=== PATIENT | female | born 1995 | race Two or more races ===

== ENCOUNTER 2017-12-12 12:46 | Emergency (ER) | payer OTHER ==
[2017-12-12 13:07] LABS: BILIRUBIN,URINE NEGATIVE (NEGATIVE); GLUCOSE, URINE (UA) NEGATIVE (NEGATIVE); KETONES,URINE (UA) NEGATIVE (NEGATIVE); LEUKOCYTE ESTERASE, URINE TRACE (NEGATIVE); NITRITE,URINE NEGATIVE (NEGATIVE); OCCULT BLOOD,URINE LARGE (NEGATIVE); PROTEIN,URINE 100 mg/dL (NEGATIVE); UROBILINOGEN,URINE 0.2 (NORMAL) E.U./dL (NORMAL)
[2017-12-12 13:12] LABS: CLARITY,URINE HAZY (CLEAR); HCG UR QUAL NEGATIVE
[2017-12-12 13:20] LABS: BACTERIA,URINE Moderate /HPF (None Seen); SQUAMOUS EPITHELIAL CELL,UR FEW Squamous (<= Few); YEAST,URINE PRESENT
[2017-12-12] MEDS ORDERED: SODIUM CHLORIDE 0.9% 1,000 ML IV ONE (13:41)
[2017-12-12] MEDS ORDERED: MORPHINE 2 MG/ML CARPUJECT IVP STA ×2 (13:41→14:07)
[2017-12-12] MEDS ORDERED: ONDANSETRON 4 MG/2 ML VIAL IVP STA (13:41)
--- NOTE | 2017-12-12 13:46 | ED Physician Documentation ---
History of Present Illness - Stated complaint Stated Complaint: FEMALE - Chief complaint Chief Complaint: General - Additonal information Additional information: hx from pt abd pain X 1 day feels faint no fever nausea some urinary sx dysuria and hematuria LMP 3 days ago denies preg states she [place] that showed a chronically failed kidney Review of Systems Constitutional: reports: Fatigue. denies: Fever, Chills Throat: denies: Sore throat Cardiac: denies: Chest pain / pressure Respiratory: denies: Dyspnea GI: reports: Abdominal Pain, Nausea : reports: Dysuria, Hematuria. denies: Now EGA Musculoskeletal: denies: Back pain Endocrine: denies: Easy bruising / bleeding Immunocompromised: denies: Immunocompromised PD PAST MEDICAL HISTORY - Past Medical History Past Medical History: Yes : Other Other Past Medical History: L side kindye " not working " - Past Surgical History Past Surgical History: No - Present Medications Home Medications: Ambulatory Orders Medication Instructions Recorded Confirmed traMADol [Ultram] 50 mg PO PRN PRN 12/12/17 12/12/17 - Allergies Allergies/Adverse Reactions: Allergies Allergy/AdvReac Type Severity Reaction Status Date / Time No Known Drug Allergies Allergy Verified 12/12/17 12:50 - Social History Does the pt smoke?: No Smoking Status: Never smoker Does the pt drink ETOH?: Yes ETOH Use: Wine Does the pt have substance abuse?: No - Immunizations Immunizations are current?: Yes - POLST Patient has POLST: No PD ED PE NORMAL - Vitals Vital signs reviewed: Yes - General General: Other (very pale) - Neck Neck: Supple, no meningeal sign - Cardiac Cardiac: RRR - Respiratory Respiratory: No respiratory distress, Clear bilaterally - Abdomen Abdomen: Other (severe TTP LLQ with guarding, slightly milder diffuse TTP throughout abd) - Derm Derm: Other (pale) - Neuro Neuro: Other (very weak) Results - Vitals Vitals: Vital Signs - 24 hr 12/12/17 12/12/17 12/12/17 12:48 14:51 15:51 Temperature 36.6 C 37.1 C Heart Rate 91 87 86 Respiratory 16 18 18 Rate Blood Pressure 123/73 104/57 L 94/61 O2 Saturation 99 100 99 Oxygen O2 Source Room air - Labs Labs: Laboratory Tests 12/12/17 12/12/17 12/12/17 12:55 14:03 14:03 WBC 18.4 H RBC 4.36 Hgb 11.2 L Hct 34.2 L MCV 78.4 L MCH 25.7 L MCHC 32.7 RDW 14.4 Plt Count 316 MPV 7.3 L Neut # 15.2 H Lymph # 2.1 [place] # 0.9 Eos # 0.1 Baso # 0.0 Absolute Nucleated RBC 0.00 Nucleated RBC % 0.0 Sodium 139 Potassium 3.4 L Chloride 104 Carbon Dioxide 24 Anion Gap 11.0 BUN 13 Creatinine 0.7 Estimated GFR (MDRD) 104 Glucose 125 H Calcium 8.5 Total Bilirubin 0.5 AST 16 ALT 10 Alkaline Phosphatase 68 Total Protein 6.8 Albumin 4.1 Globulin 2.7 Albumin/Globulin Ratio 1.5 Lipase < 10 L Urine Color YELLOW Urine Clarity HAZY Urine pH 6.0 Ur Specific [place] >=1.030 H Urine Protein 100 H Urine Glucose (UA) NEGATIVE Urine Ketones NEGATIVE Urine Occult Blood LARGE H Urine Nitrite NEGATIVE Urine Bilirubin NEGATIVE Urine Urobilinogen 0.2 (NORMAL) Ur Leukocyte Esterase TRACE H Urine RBC 11-25 H Urine WBC 11-25 H Ur Squamous Epith Cells FEW Squamous Urine Bacteria Moderate H Urine Yeast PRESENT Ur Microscopic Review INDICATED Urine Culture Comments INDICATED Urine HCG, Qual NEGATIVE - Rads (name of study) CT AP Radiology: See rad report (L kidney essentially enlarged hydronephrotic sac containing multiple stones, 2X2.5mm stone within dilated l proximal ureter, not obstructing with pt supine in CT kelsie per rad could obstrict in diff position, no other ureteral stone but limited CT 2/2 scant body fat, extensive shotty adenopathy consider mesenteric adenitis, IUD hypeetrophied R kidney) PD MEDICAL DECISION MAKING - ED course ED course: pyelo with a 2X2.5 mm prox ureteral stone with infection her pain today was lower than prior renal colic but as severe - has hematuria and pyuria and stone on CT and no other sig abn on CT per rad read and pts urologist Dr Heredia this stone is intermittently obstructing she looks better now after toradol and IVF and rocephin but was very ill appearing upon arrival and has elev WBC and certainly potentially to rapidly decompensate again d/w urology and hospitalist at [facility] who agree to admit pt Departure - Departure Disposition: 02 Transfer Acute Care Hosp Clinical Impression: Pyelonephritis, Ureteral stone Condition: Fair
[2017-12-12 14:22] LABS: BASOPHILS % (AUTO) 0.2 %; EOSINOPHILS # (AUTO) 0.1 10^3/uL (0.0-0.7); EOSINOPHILS % (AUTO) 0.7 %; HGB - HEMOGLOBIN 11.2 g/dL (12.0-16.0); LYMPHOCYTES # (AUTO) 2.1 10^3/uL (1.5-3.5); LYMPHOCYTES % (AUTO) 11.2 %; MEAN CORPUSCULAR HEMOGLOBIN 25.7 pg (27.0-31.0); MEAN CORPUSCULAR HGB CONC 32.7 g/dL (32.0-36.0); MEAN CORPUSCULAR VOLUME 78.4 fL (81.0-99.0); MEAN PLATELET VOLUME 7.3 fL (7.9-10.8); MONOCYTES # (AUTO) 0.9 10^3/uL (0.0-1.0); NEUTROPHILS # (AUTO) 15.2 10^3/uL (1.5-6.6); NEUTROPHILS % (AUTO) 82.9 %; PLT - PLATELET COUNT 316 10^3/uL (130-450); RED BLOOD COUNT 4.36 10^6/uL (4.20-5.40); RED CELL DISTRIBUTION WIDTH 14.4 % (12.0-15.0); WHITE BLOOD COUNT 18.4 x10^3/uL (4.8-10.8)
[2017-12-12 14:34] LABS: ALBUMIN 4.1 g/dL (3.2-5.5); ALBUMIN/GLOBULIN RATIO 1.5 (1.0-2.2); ALKALINE PHOSPHATASE 68 IU/L (42-121); ALT ALANINE AMINOTRANSFERASE 10 IU/L (10-60); AST ASPARTATE AMINOTRANSFERASE 16 IU/L (10-42); BILIRUBIN,TOTAL 0.5 mg/dL (0.2-1.0); BUN - BLOOD UREA NITROGEN 13 mg/dL (6-20); CALCIUM 8.5 mg/dL (8.5-10.3); CARBON DIOXIDE - CO2 24 mmol/L (21-32); CHLORIDE 104 mmol/L (101-111); CREATININE 0.7 mg/dL (0.4-1.0); GFR - MDRD 104 (>89); GLUCOSE 125 mg/dL (70-100); SODIUM 139 mmol/L (135-145); TOTAL PROTEIN 6.8 g/dL (6.7-8.2)
[2017-12-12 14:40] LABS: LIPASE < 10 U/L (22-51)
[2017-12-12] MEDS ORDERED: KETOROLAC 30 MG/ML VIAL IVP STA (14:56)
--- NOTE | 2017-12-12 15:03 | CT Preliminary Report ---
Exam: CT ABDOMEN/PELVIS W/O IMPRESSION: 1. Left kidney is essentially a enlarged hydronephrotic sac with multiple small stones. 2. 2 x 2.5 mm stone within the dilated patulous proximal left ureter not causing mechanical obstructi on of such at this time with the patient in a supine position. Please note that this particular stone may vary in location within the left ureter such that it does cause obstruction when this lady is in an upright position. 3. No confident visualization of an additional left ureteral stone although visualization of the left ureter very limited due to paucity of body fat. 4. Extensive shoddy mesenteric and retroperitoneal adenopathy. Mesenteric adenitis included in the di fferential. 5. IUD. 6. Compensatory hypertrophy right kidney. [facility] SITE ID: [id number]
--- NOTE | 2017-12-12 15:11 | CT Report ---
EXAM: CT ABDOMEN AND PELVIS EXAM DATE: 12/12/2017 02:24 PM. CLINICAL HISTORY: Left lower quadrant pain. Hematuria. COMPARISONS: None. TECHNIQUE: Routine helical CT imaging was performed through the abdomen and pelvis. IV contrast: None . Enteric contrast: No. Reconstructions: Coronal and sagittal. In accordance with CT protocol optimization, one or more of the following dose reduction techniques w ere utilized for this exam: automated exposure control, adjustment of mA and/or KV based on patient s ize, or use of iterative reconstructive technique. FINDINGS: Lung Bases: Unremarkable. Liver: Normal. No masses. Gallbladder/Bile Ducts: Unremarkable. Spleen: Normal. Pancreas: Normal. Adrenal Glands: Normal. Kidneys: The right kidney measures 14.4 cm in length. The right kidney and right ureter are normal. The left kidney measures 12.5 cm in length. There is marked uniform thinning of the left renal cortex , measuring 3 mm. Multiple 4 mm and smaller stones within the markedly distended pelvicalyceal system. 2 x 2.5 mm stone within the dilated proximal left ureter, level with the mid body of L4. This stone d oes not occupy the entirety of the ureteral lumen. No additional calcifications in the area of the le ft ureter. Peritoneal Cavity/Bowel: Extensive mesenteric and retroperitoneal shotty adenopathy. Large and small bowel normal caliber. No free air nor free fluid. The appendix is well visualized and normal. Pelvic Organs: IUD in place. The bladder and visualized pelvic organs are within normal limits. Vasculature: No aneurysms or other significant abnormality. Bones: No significant abnormality. Other: None. IMPRESSION: 1. Left kidney, essentially an enlarged hydronephrotic sac with multiple small stones. 2. 2 x 2.5 mm stone within the dilated patulous proximal left ureter not causing mechanical obstructi on of such at this time with the patient in a supine position. Please note that this particular stone may vary in location within the left ureter such that it does cause obstruction when this lady is in an upright position. 3. No confident visualization of an additional left ureteral stone, although visualization of the lef t ureter very limited due to paucity of body fat. 4. Extensive shotty mesenteric and retroperitoneal adenopathy. Mesenteric adenitis included in the di fferential. 5. IUD. 6. Compensatory hypertrophy of the right kidney. [facility] Referring Provider Line: [phone] SITE ID: [id number]
[2017-12-12] MEDS ORDERED: cefTRIAXone 1 GM in SODIUM CHLORIDE 0.9% MINIBAG 100 ML IV STA (16:25)
[2017-12-12 20:51] VITALS: BP 109/58
== END 2017-12-12 20:50 | disposition short-term general hospital (02) ==
LOC: ED 12:46
DX: N13.6 Pyonephrosis (principal); Z97.5 Presence of (intrauterine) contraceptive device
CPT/HCPCS: 36415; 74176; 80053; 81001; 81003; 81025; 83690; 85025; 87086; 96365; 96375; 99283; 99284

== ENCOUNTER 2017-12-12 20:52 | Outpatient (CLI) | payer OTHER | END 2017-12-12 20:53 | disposition short-term general hospital (02) | LOC: EMS 20:52 | PROVIDERS: ATTEND Surgery | DX: N20.0 Calculus of kidney (principal) | CPT/HCPCS: A0425; A0428 ==

== ENCOUNTER 2018-01-07 09:25 | Outpatient (CLI) | payer OTHER ==
--- NOTE | 2018-01-07 15:41 | Nuclear Medicine Report ---
EXAM: RENOGRAM WITH LASIX EXAM DATE: 01/07/2018 11:32 AM. CLINICAL HISTORY: UNSPECIFIED HYDRONEPHROSIS. COMPARISON: CT 12/12/2017. TECHNIQUE: Adequate hydration status was ensured. Patient received the intravenous administration of 5.3 mCi Tc-99m MAG3. Immediate renal blood flow images were acquired for 2 minutes. Approximately 7 m inutes into the study, the patient received an intravenous administration of 40 mg Lasix. Renal dynam ic images were acquired from the posterior projection for approximately 30 minutes. Postvoid images w ere acquired as well. FINDINGS: Renal Vascular Flow: There is asymmetrically decreased vascular flow to the left kidney. Renal Parenchymal Function: There is normal function of the right kidney. There is decreased function of the left kidney. Time to peak activity on the left is 25 minutes. Drainage: There is normal drainage of the right kidney. There is very little drainage from the left k idney without significant response to Lasix administration. Postvoid Images: Persistent asymmetric retention of activity in the left kidney. Differential Function: Left Kidney = 13.1% Right Kidney = 86.9% IMPRESSION: 1. Obstructed and poorly functioning left kidney. 2. Normal function and drainage of the right kidney. [facility] Referring Provider Line: [phone] SITE ID: [id number]
[2018-01-08] MEDS ORDERED: FUROSEMIDE 40 MG/4 ML VIAL IVP SCH (09:00)
== END 2018-01-07 09:26 | disposition home or self-care (01) ==
LOC: DI 09:25
PROVIDERS: ATTEND Specialist
DX: N28.9 Disorder of kidney and ureter, unspecified (principal)
CPT/HCPCS: 78708; A9562

== ENCOUNTER 2018-03-28 14:21 | Outpatient (CLI) | payer OTHER ==
[2018-03-28 15:50] LABS: BILIRUBIN,URINE NEGATIVE (NEGATIVE); GLUCOSE, URINE (UA) NEGATIVE (NEGATIVE); KETONES,URINE (UA) NEGATIVE (NEGATIVE); LEUKOCYTE ESTERASE, URINE NEGATIVE (NEGATIVE); NITRITE,URINE NEGATIVE (NEGATIVE); OCCULT BLOOD,URINE NEGATIVE (NEGATIVE); PROTEIN,URINE NEGATIVE (NEGATIVE); UROBILINOGEN,URINE 0.2 (NORMAL) E.U./dL (NORMAL)
[2018-03-28 15:52] LABS: CLARITY,URINE CLEAR (CLEAR)
== END 2018-03-28 14:22 | disposition home or self-care (01) ==
LOC: LAB.R 14:21
PROVIDERS: ATTEND Specialist
DX: R10.9 Unspecified abdominal pain (principal); N13.30 Unspecified hydronephrosis
CPT/HCPCS: 81001; 81003; 87086